=== PATIENT | female | born 1945 | race Caucasian/White ===

== ENCOUNTER 2018-03-16 10:22 | Day surgery (SDC) | payer MEDICARE ==
[2018-03-16] MEDS: NS 1,000 ML IV (10:45)
[2018-03-16] MEDS ORDERED: PROPOFOL 200 MG/20 ML VIAL As Ordered (12:17)
[2018-03-16] MEDS ORDERED: LIDOCAINE 2% INJ 100 MG/5 ML SDV (FOR ANES.) As Ordered (12:17)
== END 2018-03-16 13:40 | disposition home or self-care (01) ==
LOC: M OPP 10:22
DX: Z12.11 Encounter for screening for malignant neoplasm of colon (principal); Z80.0 Family history of malignant neoplasm of digestive organs; R00.8 Other abnormalities of heart beat; E78.5 Hyperlipidemia, unspecified; E03.9 Hypothyroidism, unspecified; M54.89 Other dorsalgia; Z78.0 Asymptomatic menopausal state; R05 Cough; Z88.0 Allergy status to penicillin; Z88.1 Allergy status to other antibiotic agents; Z88.8 Allergy status to other drugs, medicaments and biological substances; Z79.82 Long term (current) use of aspirin; Z79.899 Other long term (current) drug therapy
CPT/HCPCS: G0105

== ENCOUNTER → 2020-03-24 | Outpatient (CLI) | payer MEDICARE ==
[~2020-03-24] MED LIST: ASPI81TA26 PO; BETA5CR EXT; CETI10TA PO; CINN500C15 PO; CINN500C9 PO; COCOOIL6 PO; CODCAP5 PO; CRES5TAB PO; CYAN100049 PO; EQL50TAB2 PO; FLON1SPR; GALZ50CA PO; GARL1000 PO; GARL10005 PO; GLUC1CAP9 PO; GLUC500C37 PO; LEVO25TA5 PO; LEVO75TA4 PO; MAGN250T7 PO; MM S100C PO; TURM500C3 PO; UBID100C6 PO; VITA-243 PO; VITA100067 PO; VITA1CAP15 PO; VITA1CHW7 PO; VITA400C7 PO; VITAD1000T PO; VITATAB11 PO; ZINC50TA PO
== END ==
LOC: M LABSMTC 10:22
PROVIDERS: ATTEND Anesthesiology
DX: Z03.818 Encounter for observation for suspected exposure to other biological agents ruled out (principal); Z11.59 Encounter for screening for other viral diseases
CPT/HCPCS: C9803; U0003

== ENCOUNTER 2020-03-27 09:30 | Day surgery (SDC) | payer MEDICARE ==
[~2020-03-27] VITALS: Ht 154.9 cm; Wt 62.1 kg
[2020-03-27] VITALS (8 sets, daily range): BP systolic 112–130; BP diastolic 53–64
[~2020-03-27 09:30] MED LIST changes: +LIDOCAINE 2% 100MG/5ML SDV (FOR ANES.) As Ordered ONE; +LR 1,000 ML IV ONE; +MIDAZOLAM INJ 2MG/2ML VIAL (J2250 PER 1MG) As Ordered ONE; +ROCURONIUM BROMIDE 50 MG/5 ML VIAL As Ordered ONE; +ceFAZolin SOD 2 GM in IV 1 EA IV ONE; +fentaNYL 250 MCG/5 ML INJECTION (J3010) As Ordered ONE; +propofoL 200 MG/20 ML VIAL As Ordered ONE
[2020-03-27 09:56] LABS: HEMATOCRIT 43.1 % (36.0-47.0); HEMOGLOBIN 14.2 g/dl (12.0-15.5); MEAN CORPUSCULAR HEMOGLOBIN 33.3 pg (27.0-33.0); MEAN CORPUSCULAR HGB CONC 32.9 g/dl (32.0-36.5); MEAN CORPUSCULAR VOLUME 100.9 fl (80.0-96.0); PLATELET COUNT, AUTOMATED 143 10^3/uL (150-450); RED BLOOD COUNT 4.27 10^6/uL (4.00-5.40); WHITE BLOOD COUNT 6.2 10^3/uL (4.0-10.0)
[2020-03-27] MEDS ORDERED: VASOPRESSIN INJ 20 UNITS/ML VIAL As Ordered ONE (10:29)
[2020-03-27] MEDS ORDERED: PHENAZOPYRIDINE 100 MG TAB PO ONE (10:30)
[2020-03-27] MEDS ORDERED: PHENYLephrine HCL 500 MCG/5 ML (100MCG/ML) SYRINGE (J2370) As Ordered ONE (11:06)
[2020-03-27] MEDS ORDERED: KETOROLAC 60MG 2ML VIAL As Ordered ONE (11:59)
[2020-03-27] MEDS ORDERED: ePHEDrine SULFATE 25 MG/5 ML(5MG/ML) SYRINGE As Ordered ONE (11:59)
[2020-03-27] MEDS ORDERED: dexameTHASONE 4 MG/ML 1ML VIAL (J1100 PER 1MG) As Ordered ONE (11:59)
[2020-03-27] MEDS ORDERED: ONDANSETRON 4MG/2ML VIAL As Ordered ONE (11:59)
[2020-03-27] MEDS ORDERED: ACETAMINOPHEN 1000MG 100ML IV BTL (OFIRMEV) (J0131 PER 10MG) As Ordered ONE (12:00)
[2020-03-27] MEDS ORDERED: NEOSTIGMINE 10MG/10ML VIAL (J2710 PER 0.5MG) As Ordered ONE (12:50)
[2020-03-27] MEDS ORDERED: GLYCOPYRROLATE INJ 0.2 MG/ML 2 ML VIAL As Ordered ONE (12:50)
[2020-03-27] MEDS ORDERED: HYDROmorphone HCL 2 MG/ML 1ML VIAL (J1170) As Ordered ONE (13:03)
[2020-03-27] MEDS ORDERED: MORPHINE 1MG/ML IN 0.9% NACL 100ML IV BAG As Ordered ONE (13:19)
[2020-03-27] MEDS ORDERED: EPIDURAL/PCA KEYS XX PRN (13:30)
[2020-03-27] MEDS ORDERED: PERCOCET 5MG/325MG TAB PO PRN (13:30)
[2020-03-27] MEDS ORDERED: fentaNYL 100 MCG/2 ML INJECTION (J3010) IV PRN (13:30)
[2020-03-27] MEDS ORDERED: NALBUPHINE HCL 10 MG/ML AMP (J2300) IV PRN (13:30)
[2020-03-27] MEDS ORDERED: LR 1,000 ML IV SCH (13:30)
[2020-03-27] MEDS ORDERED: MORPHINE 1MG/ML IN 0.9% NACL 100ML IV BAG IV PRN (13:30)
[2020-03-27] MEDS ORDERED: diphenhydrAMINE 50MG/ML VIAL (J1200) IV PRN (13:30)
[2020-03-27] MEDS ORDERED: ONDANSETRON 4MG/2ML VIAL IV PRN (13:30)
[2020-03-27] MEDS: LR 1,000 ML IV SCH (13:30)
[2020-03-27] MEDS ORDERED: NALOXONE INJ 0.4MG/1ML VIAL (J2310 PER 1MG) IV PRN (13:30)
[2020-03-27] MEDS ORDERED: IBUPROFEN 600MG TAB PO PRN (13:30)
[2020-03-27] MEDS ORDERED: METOCLOPRAMIDE INJ 10MG/2ML VIAL (J2765 PER 1) IV PRN (13:30)
[2020-03-27] MEDS ORDERED: PILL CUTTER 1 EACH XX PRN (14:45)
[2020-03-27] MEDS: DOCUSATE SODIUM 100 MG CAP PO SCH (20:15)
[2020-03-27] MEDS ORDERED: CETIRIZINE (ZyrTEC) 10 MG TAB PO SCH (21:00)
[2020-03-28] MEDS ORDERED: UNRESOLVED CLARIFICATION ENTRY XX SCH (00:01)
[2020-03-28] MEDS: LR 1,000 ML IV SCH (02:22)
[2020-03-28 04:00] VITALS: BP 110/56
[2020-03-28] MEDS ORDERED: LEVOTHYROXINE 75MCG TABLET (0.075MG) PO SCH (06:00)
[2020-03-28] MEDS ORDERED: NORCO, ANEXSIA 5/325MG TABLET (HYDROcodone/ACETAMINOPHEN) PO PRN (06:00)
[2020-03-28 07:18] LABS: HEMATOCRIT 35.9 % (36.0-47.0); MEAN CORPUSCULAR HEMOGLOBIN 33.8 pg (27.0-33.0); MEAN CORPUSCULAR HGB CONC 33.4 g/dl (32.0-36.5); MEAN CORPUSCULAR VOLUME 101.1 fl (80.0-96.0); PLATELET COUNT, AUTOMATED 122 10^3/uL (150-450); RED BLOOD COUNT 3.55 10^6/uL (4.00-5.40); WHITE BLOOD COUNT 12.7 10^3/uL (4.0-10.0)
[2020-03-28 08:00] VITALS: BP 113/52
[2020-03-28] MEDS: DOCUSATE SODIUM 100 MG CAP PO SCH (09:00)
[2020-03-28] MEDS ORDERED: ROSUVASTATIN 10 MG TAB (CRESTOR) PO SCH (09:00)
[2020-03-28] MEDS ORDERED: VITAMIN D 1,000 INTERNATIONAL UNITS TABLET PO SCH (09:00)
[2020-03-29] MEDS ORDERED: LEVOTHYROXINE 50MCG TABLET (0.05MG) PO SCH (06:00)
--- NOTE | 2020-04-01 19:13 | RO ---
DATE OF PROCEDURE: 03/27/2020 PREOPERATIVE DIAGNOSIS: Symptomatic prolapse. POSTOPERATIVE DIAGNOSIS: Symptomatic prolapse. PROCEDURE: Total vaginal hysterectomy. We were unable to get the bilateral salpingectomy. We had sacrospinous suspension, anterior and posterior repair with perineorrhaphy and cystourethroscopy. SURGEON: Dr. Ivone Troncoso REWINDER: None. ANESTHESIA: General endotracheal anesthesia. DESCRIPTION OF PROCEDURE: Whitley was brought to the operating room where she was prepped, draped, and positioned in the usual sterile fashion, the bladder was emptied, and the anterior aspect of her small cervix grasped with a single-tooth tenaculum, the posterior aspect grasped with single-tooth tenaculum. A circumferential incision was made around the base of the cervix. The cardinal ligaments were isolated. The uterosacrals were quite attenuated and really lacking in substance. We carefully made our dissection through both those ligaments, entered posteriorly, and then carefully displaced the bladder, which was rather copious and redundant and worked our way along the lateral aspects of the uterus, clamping with De Ferrer clamps, transecting the ligaments with the SuperCut scissors, and then ligating each pedicle with #0 Vicryl suture with good hemostasis achieved with this dissection. We then delivered the uterus readily. We could palpate but not see the ovaries and the tubes just sort of went up in that direction as well. They did not appear to have any cysts palpable on them, and given their progression cephalad, the decision was made to just leave the tubes and move on with the case. We dissected the peritoneum away from the underlying rectovaginal and bladder tissues and closed the peritoneum with a pursestring suture and re-supported posteriorly because there was some laxity there. Then, dissected posteriorly out towards the patient's right sacrospinous ligament, which was readily palpable, and dissected anteriorly over the cystocele. We did some pursestring and then some [id number] #2-0 Vicryl sutures to re-support anteriorly across the paravesical tissues, closing off that cystocele and re-supporting it while the staff loaded up the Anchorsure. Then, using the Anchorsure, we were able to place two Anchorsure anchors into the sacrospinous ligament. Each of those anchors had two #2-0 Maxon sutures, so we had four sutures in total. Using Allis clamps to bring up the tissue to the sacrospinous ligament, we chose our space through the tissues and then using the reusable Eaton needle, placed [id number] sutures for a four-point suspension of the vaginal cuff at the locations previously _decided on with allis clamps_. Some of the redundant tissue was transected and removed at this point, and we had the sutures placed and through the cuff tissues, we then closed the cuff and then watson down the sutures that were single throw. Then, did a rectal exam confirming that there was no injury to the bowel. Then, after changing gloves, did cystoscopy and confirmed that we did have that cystocele supported. There was some puckering to it, but it was definitely supported up and we had good jets of urine bilaterally. The patient had been given Pyridium and so we were able to see these quite readily. There was no evidence of suture in the bladder or injury to the bladder, and there were normal jets of urine, so the bladder was emptied back out and the rest of the throws were placed on the Maxon suture. And after we had multiple throws on each suture, we transected that, and having completed the cystocele, anterior repair, and the support of the vaginal cuff, we did still have laxity posteriorly because closer to the introitus, there were still some defects in the rectovaginal septum and a separation from the perineal body, and some laxity at the genital hiatus. So, an inverted triangle of tissue over the perineum was excised and then the Strully scissors were used to dissect under the vaginal epithelium to expose the rectovaginal septum, and again there were several notable defects and a separation from the perineal body, so #2-0 Vicryl was used to re-support the rectovaginal tissues and reconnect it to the perineal body. Then, some #0 Vicryl was used at the perineum in the deeper layer, and then the redundant tissues were excised and #2-0 Vicryl was used to close the skin layer with good approximation and hemostasis achieved. We then did place a vaginal pack and the Christy, and the procedure was ended. Estimated blood loss for the procedure: About 50 mL. Fluid replacement was crystalloid. Complications: None. Condition and Disposition: Whitley tolerated the procedure well and was recovering in the recovery room in good condition. CHRISTIANO
== END 2020-03-28 09:50 | disposition home or self-care (01) ==
LOC: M SDC 09:30 → M PED 14:15 → M SDC 03-28 09:50
PROVIDERS: ATTEND Obstetrics & Gynecology
DX: N81.4 Uterovaginal prolapse, unspecified (principal); N88.8 Other specified noninflammatory disorders of cervix uteri; G43.909 Migraine, unspecified, not intractable, without status migrainosus; K21.9 Gastro-esophageal reflux disease without esophagitis; E03.9 Hypothyroidism, unspecified; Z86.73 Personal history of transient ischemic attack (TIA), and cerebral infarction without residual deficits; Z79.82 Long term (current) use of aspirin; Z79.899 Other long term (current) drug therapy; Z88.0 Allergy status to penicillin; Z88.1 Allergy status to other antibiotic agents
CPT/HCPCS: 36415; 57260; 57282; 58260; 85027; 86850; 86870; 86900; 86901; 88307; 96360; 96361; C1713; J0131; J0690; J1100; J1170; J1885; J2250; J2370; J2405; J2710; J3010

== ENCOUNTER → 2021-12-04 | Outpatient (REF) | payer MEDICARE ==
[~2021-12-04] MED LIST changes: +COEN100C4 PO; -LIDOCAINE 2% 100MG/5ML SDV (FOR ANES.) As Ordered ONE; -LR 1,000 ML IV ONE; -MIDAZOLAM INJ 2MG/2ML VIAL (J2250 PER 1MG) As Ordered ONE; -ROCURONIUM BROMIDE 50 MG/5 ML VIAL As Ordered ONE; -UBID100C6 PO; +VITA100093 PO; -VITA1CAP15 PO; +VITA400C83 PO; -VITAD1000T PO; -ceFAZolin SOD 2 GM in IV 1 EA IV ONE; -fentaNYL 250 MCG/5 ML INJECTION (J3010) As Ordered ONE; -propofoL 200 MG/20 ML VIAL As Ordered ONE
[2021-12-04 17:02] LABS: APPEARANCE, URINE CLOUDY (CLEAR); BACTERIA, URINE AUTO NEGATIVE (NEGATIVE); BILIRUBIN, URINE AUTO NEGATIVE (NEGATIVE); BLOOD, URINE BLOOD NEGATIVE (NEGATIVE); COLOR, URINE YELLOW (YELLOW); GLUCOSE, URINE (UA) AUTO NEGATIVE (NEGATIVE); KETONE, URINE AUTO NEGATIVE (NEGATIVE); LEUKOCYTE ESTERASE, URINE AUTO 3+ (NEGATIVE); MUCUS, URINE SMALL (NEGATIVE); NITRITE, URINE AUTO NEGATIVE (NEGATIVE); PROTEIN, URINE AUTO 2+ mg/dL (NEGATIVE); RBC, URINE AUTO 19 /HPF (0-3); SPECIFIC GRAVITY URINE AUTO 1.014 (1.002-1.035); SQUAMOUS EPITHELIAL CELL UR AU 2 /HPF (0-6); UROBILINOGEN, URINE AUTO 0.2 mg/dL (0.0-2.0); WBC, URINE AUTO 99 /HPF (0-3)
== END ==
LOC: M LAB REF 16:32
PROVIDERS: ATTEND Obstetrics & Gynecology
DX: N30.01 Acute cystitis with hematuria (principal)

== ENCOUNTER → 2022-01-05 | Outpatient (REF) | payer MEDICARE ==
[2022-01-05 14:24] LABS: APPEARANCE, URINE CLOUDY (CLEAR); BACTERIA, URINE AUTO 2+ (NEGATIVE); BILIRUBIN, URINE AUTO NEGATIVE (NEGATIVE); BLOOD, URINE BLOOD 3+ (NEGATIVE); COLOR, URINE YELLOW (YELLOW); GLUCOSE, URINE (UA) AUTO NEGATIVE (NEGATIVE); KETONE, URINE AUTO NEGATIVE (NEGATIVE); LEUKOCYTE ESTERASE, URINE AUTO 3+ (NEGATIVE); MUCUS, URINE SMALL (NEGATIVE); NITRITE, URINE AUTO NEGATIVE (NEGATIVE); PROTEIN, URINE AUTO 2+ mg/dL (NEGATIVE); RBC, URINE AUTO 29 /HPF (0-3); SPECIFIC GRAVITY URINE AUTO 1.006 (1.002-1.035); SQUAMOUS EPITHELIAL CELL UR AU 1 /HPF (0-6); UROBILINOGEN, URINE AUTO 0.2 mg/dL (0.0-2.0); WBC, URINE AUTO TNTC /HPF (0-3)
== END ==
LOC: M LAB REF 13:05
PROVIDERS: ATTEND Obstetrics & Gynecology
DX: N30.01 Acute cystitis with hematuria (principal)

== ENCOUNTER → 2022-02-12 | Outpatient (REF) | payer MEDICARE ==
[2022-02-12 16:13] LABS: APPEARANCE, URINE TURBID (CLEAR); BACTERIA, URINE AUTO 1+ (NEGATIVE); BILIRUBIN, URINE AUTO NEGATIVE (NEGATIVE); BLOOD, URINE BLOOD 1+ (NEGATIVE); COLOR, URINE AMBER (YELLOW); GLUCOSE, URINE (UA) AUTO NEGATIVE (NEGATIVE); KETONE, URINE AUTO TRACE mg/dL (NEGATIVE); LEUKOCYTE ESTERASE, URINE AUTO 3+ (NEGATIVE); MUCUS, URINE SMALL (NEGATIVE); NITRITE, URINE AUTO NEGATIVE (NEGATIVE); PROTEIN, URINE AUTO 3+ mg/dL (NEGATIVE); RBC, URINE AUTO TNTC /HPF (0-3); SPECIFIC GRAVITY URINE AUTO 1.019 (1.002-1.035); SQUAMOUS EPITHELIAL CELL UR AU 3 /HPF (0-6); UROBILINOGEN, URINE AUTO 0.2 mg/dL (0.0-2.0); WBC, URINE AUTO TNTC /HPF (0-3)
== END ==
LOC: M LAB REF 15:47
PROVIDERS: ATTEND Obstetrics & Gynecology
DX: N30.01 Acute cystitis with hematuria (principal)